=== PATIENT | female | born 1980 | race Caucasian/White ===

== ENCOUNTER → 2017-03-03 | Outpatient (CLI) | payer OTHER ==
[~2017-03-03] MED LIST: ALBUAER2 INH; BUDESUS; MTR600X PO; PRENTAB26 PO; SNG10 PO
[2017-03-03 09:49] LABS: ALT/SGPT 17 U/L (12-78); AST/SGOT 17 U/L (15-37); BLOOD UREA NITROGEN 17 mg/dl (7-18); BUN/CREATININE RATIO 21.4 (10-20); CALCIUM 8.8 mg/dl (8.5-10.1); CARBON DIOXIDE 30 mmol/L (21-32); CHLORIDE 104 mmol/L (98-107); GLUCOSE 87 mg/dl (70-99); POTASSIUM 3.8 mmol/L (3.5-5.1); SODIUM 139 mmol/L (136-145)
[2017-03-03 09:56] LABS: ALB/GLOB RATIO 1.3 (0.9-2); ALKALINE PHOSPHATASE 58 U/L (45-117); CHOLESTEROL 154 mg/dl (0-200); CHOLESTEROL/HDL RATIO 1.9; HDL CHOLESTEROL 82 mg/dl; LDL CHOLESTEROL CALCULATED 60 mg/dl; THYROID STIMULATING HORMONE 0.823 uIu/ml (0.300-4.500); TRIGLYCERIDES 61 mg/dl (0-150); VERY LOW DENSITY LIPOPROT CALC 12 mg/dl
[2017-03-03 09:57] LABS: PROLACTIN 23.26 ng/mL
[2017-03-03 10:31] LABS: BASO % 0.3 %; BASO ABS # 0.02 K/uL (0-0.2); COMPLETE YES; EOS % 0.9 %; HEMATOCRIT 40.1 % (37-47); IG% 0.2 %; LYMPH % 29.7 %; MEAN CELL VOLUME 88.9 fL (80-100); MEAN CORPUSCULAR HEMOGLOBIN 30.2 pg (25-34); MEAN CORPUSCULAR HGB CONC 33.9 g/dl (32-36); MEAN PLATELET VOLUME 10.5 fL (7.4-10.4); NEUT % 61.9 %; PLATELET COUNT 223 K/uL (130-400); RED BLOOD COUNT 4.51 M/uL (4.2-5.4); WHITE BLOOD COUNT 5.72 K/uL (4.8-10.8)
== END | disposition home or self-care (01) ==
LOC: C.LAB 07:06
PROVIDERS: ATTEND Neuromusculoskeletal Medicine & OMM
DX: N91.1 Secondary amenorrhea (principal); Z00.00 Encounter for general adult medical examination without abnormal findings; R53.83 Other fatigue